=== PATIENT | female | born 1955 | race Hispanic/Latino ===

== ENCOUNTER 2024-01-05 19:15 | Inpatient (IN) | payer MEDICARE, OTHER ==
[~2024-01-05] VITALS: Ht 154.9 cm; Wt 69.0 kg
--- OUTSIDE RECORDS SUMMARY | 2024-01-05 19:20 | XMS ---
PreManage Notification: JOSE RAMON NORMAN Security Sow Manager Events No recent Security Events currently on file CRITERIA MET - [facility] - 2 Visits in 30 Days CARE PROVIDERS -[facility] Dentist: Concrete Bucket Hooker [facility] PHONE: [phone] -Anjelica- Dentist: Concrete Bucket Hooker [facility] PHONE: [phone] Sharita Otoole Nurse Practitioner: Family Current PHONE: Unknown Alok has no Care Guidelines for this patient. E.Vonnie VISIT COUNT (12 MO.) 4 [facility] 1 ALEJANDRO PowellChristina TOTAL 5 NOTE: Visits indicate total known visits. ED/UCC VISIT TRACKING (12 MO.) 01/05/2024 19:[address] [facility] [place] TYPE: Emergency COMPLAINT: - ANXIOUS/NERVOUS 01/04/2024 19:15 [facility] [place] TYPE: Emergency DIAGNOSES: - Anxiety disorder, unspecified - HEADACHE ANXIETY 01/04/2024 05:31 [employer] [place] TYPE: Emergency DIAGNOSES: - Panic disorder [episodic paroxysmal anxiety] - ANXIETY 12/30/2023 07:15 [employer] [place] [employer] [place] TYPE: Emergency DIAGNOSES: - Anxiety disorder, unspecified - Chest pain, unspecified - chest pain 12/24/2023 10:00 [employer] [facility] OR TYPE: Emergency DIAGNOSES: - Acute upper respiratory infection, unspecified - Chest pain, unspecified - chest pain, cough, congestion INPATIENT VISIT TRACKING (12 MO.) No inpatient visits to display in this time frame [email or web address]
[2024-01-05] MEDS ORDERED: LORazepam 2 MG/ML VIAL IV ONE (19:30)
[2024-01-05] MEDS ORDERED: ondansetron HCL 4 MG/2 ML VIAL IV ONE (19:30)
[2024-01-05 19:41] LABS: HEMATOCRIT 41.2 % (35.0-50.0); HEMOGLOBIN 14.2 g/dL (12.0-18.0); MCH 30.7 (27-36); MCHC 34.5 g/dl (30-36); MCV 89.1 fl (81-99); PLATELET COUNT 469 K/uL (140-440); RBC 4.63 M/ul (4.3-5.7); RDW 13.8 (10.5-15.0)
[2024-01-05 19:55] LABS: ALBUMIN/GLOBULIN RATIO 1.21 (1.1-2.4); ANION GAP 16.2 (7-21); BILIRUBIN, TOTAL 1.3 ng/dL (0.2-1.0); BUN/CREATININE RATIO 11.11 (6.0-28.6); CALCIUM 8.5 mg/dL (8.5-10.1); CREATININE, SERUM 0.45 mg/dL (0.55-1.02); POTASSIUM 4.2 mmol/L (3.5-5.1); PROTEIN, TOTAL 7.3 g/dL (6.4-8.2)
[2024-01-05 19:59] LABS: BILIRUBIN, URINE NEGATIVE (negative); BLOOD/HGB, URINE TRACE-L (Negative); KETONE, URINE SMALL (Negative); LEUK ESTERASE, URINE NEGATIVE (negative); NITRITE, URINE NEGATIVE (negative); PH, URINE 7.5 (5-7)
[2024-01-05 20:05] LABS: LYMPHOCYTES, MANUAL DIFF 14; MONOCYTES, MANUAL DIFF 12; NEUTROPHILS, MANUAL DIFF 74
[2024-01-05 20:10] LABS: CRYSTALS, URINE AMORPHOUS PHOSPH 1+ (0-1+); EPITHELIAL CELLS, URINE SQUAMOUS 1+ /lpf (0-1+)
[2024-01-05 20:11] LABS: BACTERIA, URINE 1+ /hpf (negative); CASTS, URINE NONE SEEN \\lpf; COLLECTION TYPE, URINE CLEAN CATCH; REFLEX CULTURE, URINE No (No)
[2024-01-05] MEDS ORDERED: Sodium Chloride 3% 500 ML IV ONE ×2 (20:15→22:00)
[2024-01-05 20:17] LABS: INFLUENZA B NAA NEGATIVE (NEGATIVE); RESPIRATORY SYNCYTIAL VIR NAA NEGATIVE (NEGATIVE)
[2024-01-05 20:36] LABS: TSH, 3RD GENERATION 1.603 uIU/mL (0.358-3.740)
[2024-01-05] MEDS ORDERED: ondansetron HCL 4 MG/2 ML VIAL IV PRN (23:00)
[2024-01-05] MEDS ORDERED: ACETAMINOPHEN 325 MG TAB PO PRN (23:00)
--- NOTE | 2024-01-05 23:21 | NUR ---
SBAR REPORT RECEIVED FROM SHE WEI. PATIENT WAS TRANSFERRED VIA STRETCHER WITH VSS AND WDL PER MONITOR. SHE IS NOTED TO BE TREMULOUS AND ENDORSED RESTROOM NEEDS AND CHILLS. 1P ASSIT TO BSC. URINE ADDED TO 24 CATCH COLLECTION. WARM BLANKETS PROVIDED. AFEBRILE. A&O X4, MOVES ALL EXTREMITIES, NO PAIN RA, CLEAR BREATHSOUNDS THROUGHOUT CARDIAC- NSR, NO EDEMA GI/- NORMOACTIVE BOWEL TONES, ENDORSES THIRST CRITICAL VALUE OF SODIUM 118 RESULTS TO BE RELAYED TO MD DUNCAN
[2024-01-06] VITALS (18 sets, daily range): BP systolic 89–135; BP diastolic 48–81
[2024-01-06 00:30] LABS: ANION GAP 12.8 (7-21); BUN/CREATININE RATIO 11.36 (6.0-28.6); CALCIUM 7.9 mg/dL (8.5-10.1); CREATININE, SERUM 0.44 mg/dL (0.55-1.02); POTASSIUM 3.8 mmol/L (3.5-5.1)
--- NOTE | 2024-01-06 00:35 | NUR ---
CRITICAL NA+ RESULT 118. RELAYED TO MD DUNCAN
--- NOTE | 2024-01-06 01:57 | NUR ---
ASSISTED PATIENT UP TO BSC. PATIENT TOLERATED WELL. PATIENT VOIDED SMALL CONCENTRATED AMOUNT. RETURNED TO BED. ONLY NEEDING CORD MANAGEMENT FOR ASSISTANCE. NO OTHER NEEDS AT THIS TIME. FAMILY IN ROOM. CALL LIGHT IN REACH.
--- NOTE | 2024-01-06 01:59 | NUR ---
PATIENT JOSE RAMON ENDORSES COMFORT OTHER THAN THIRST. SHE WAS OFFERED A MOUTH SWAB AND EXPLAINED THAT SHE IS NPO AT CURRENT MOMENT. SHE STATES UNDERSTANDING.
[2024-01-06 02:09] LABS: ANION GAP 12.9 (7-21); BUN/CREATININE RATIO 11.11 (6.0-28.6); CALCIUM 8.1 mg/dL (8.5-10.1); CREATININE, SERUM 0.45 mg/dL (0.55-1.02); POTASSIUM 3.9 mmol/L (3.5-5.1)
[2024-01-06 04:13] LABS: ANION GAP 11.9 (7-21); BUN/CREATININE RATIO 12.76 (6.0-28.6); CALCIUM 8.1 mg/dL (8.5-10.1); CREATININE, SERUM 0.47 mg/dL (0.55-1.02); POTASSIUM 3.9 mmol/L (3.5-5.1)
[2024-01-06 06:14] LABS: BASOPHILS 0.6 % (0-2); EOSINOPHILS 0.9 % (0-6); HEMATOCRIT 40.9 % (35.0-50.0); HEMOGLOBIN 13.9 g/dL (12.0-18.0); LYMPHOCYTES 27.1 % (24-44); MCH 30.6 (27-36); MONOCYTES 11.7 % (0-12); NEUTROPHILS 59.7 % (39-80); PLATELET COUNT 412 K/uL (140-440); RBC 4.54 M/ul (4.3-5.7); RDW 13.6 (10.5-15.0)
--- NOTE | 2024-01-06 06:23 | NUR ---
NO SIGNIFICANT EVENTS OVERNIGHT. Q2 NA+. CURRENT SERUM NA+ 119 NEURO- ORIENTED X4, MOVES ALL EXTREMITIES, DENIES PAIN, TREMULOUS, PERRL CARDIAC- SR, AFEBRILE RESP- RA GI/- NPO, ENDORSES THIRST, ACTIVE BOWEL TONES, PASSING FLATUS, VOIDS TO COMMODE
[2024-01-06 06:30] LABS: BUN/CREATININE RATIO 13.04 (6.0-28.6); CALCIUM 8.3 mg/dL (8.5-10.1); CREATININE, SERUM 0.46 mg/dL (0.55-1.02)
[2024-01-06 06:34] LABS: MAGNESIUM 2.1 mg/dL (1.8-2.4); PHOSPHORUS, INORGANIC 3.9 mg/dL (2.5-4.9)
--- NOTE | 2024-01-06 07:00 | NUR ---
ROUNDING ON PATIENT AFTER REPORT, SHE IS RESTING QUIELTY IN BED EYES CLOSED, ON MONITOR V/S STABLE, RR 15/MIN
--- NOTE | 2024-01-06 08:07 | NUR ---
PATIENT BACK TO BED AFTER UP TO BATHROOM WITH STANDBY ASSIST WITH LINES, SHE TOLERATED AACTIVITY WELL, SHE REPORTS MILD DIZZINESS WITH AMBULATION. PATIENT HAD VOID OF URINE AND MEDIUM LIQUID STOOL. PATIENT BACK TO BED, SHE REPORTS NO COMPLAINTS, WARM BLANKETS PROVIDED. V/S STABLE ASSESSMENT DONE. NO NEW SYMPTOMS.
--- NOTE | 2024-01-06 08:28 | NUR ---
AT BEDSIDE, WITH CONDENSER CLEANER ODESSA [id number] VIA VIDEO CONDENSER CLEANER. THEY ARE DISCUSSING PLAN OF CARE, AND SYMPTOMS, AND CARE PLAN TO GO FURTHER, DISCUSSED LABS AND SODIUM LEVELS AND INTERVENTIONS
[2024-01-06 08:37] LABS: ANION GAP 13.9 (7-21); BUN/CREATININE RATIO 12.5 (6.0-28.6); CALCIUM 7.8 mg/dL (8.5-10.1); CREATININE, SERUM 0.48 mg/dL (0.55-1.02); POTASSIUM 3.9 mmol/L (3.5-5.1)
[2024-01-06] MEDS ORDERED: hydrOXYzine pamoate 25 MG CAP PO PRN ×2 (09:00→10:30)
[2024-01-06] MEDS ORDERED: ENOXAPARIN SODIUM 40 MG/0.4 ML SYR SUB-Q SCH (09:00)
[2024-01-06] MEDS ORDERED: MELATONIN 3 MG TAB PO PRN (09:00)
[2024-01-06] MEDS ORDERED: PANTOPRAZOLE SODIUM 40 MG/10 ML VIAL IV SCH (09:00)
[2024-01-06 10:16] LABS: BUN/CREATININE RATIO 14.58 (6.0-28.6); CALCIUM 7.9 mg/dL (8.5-10.1); CREATININE, SERUM 0.48 mg/dL (0.55-1.02)
--- NOTE | 2024-01-06 10:18 | NUR ---
CALLED IN REGARDS TO SODIUM LAB 118. SAID HE WILL PUT IN NEW ORDERS TO ALLOW PATIENT SOME DIET AND DRINK.
--- NOTE | 2024-01-06 10:33 | NUR ---
PATIENT FAMILY IN ROOM AT BEDSIDE NOW
--- NOTE | 2024-01-06 11:17 | NUR ---
PATIENT UP TO BATHROOM, VOIDED 125ML AND HAD MEDIUM LOOSE BM, FLATUS POSITIVE. PATIENT NOTED TO CONTINUE TO HAVE MILD TREMORS AT HER HANDS, NO REPORTS OF DIZZINESS.
[2024-01-06] MEDS ORDERED: PHARMACY RENAL DOSE ADJUSTMENT 1 DOSE MISC PO SCH (12:00)
--- NOTE | 2024-01-06 12:07 | NUR ---
PATIENT SET UP WITH LUNCH TRAY, SHE IS ALERT AND ORIENTED, FAMILY IN ROOM, HAND TOWEL PROVIDED. SHE ASKED FOR APPLE JUICE FOR HER FLUIDS WITH LUNCH, MILK REMOVED AND APPLE JUICE PROVIDED.
[2024-01-06 12:29] LABS: BUN/CREATININE RATIO 11.32 (6.0-28.6); CALCIUM 8.1 mg/dL (8.5-10.1); CREATININE, SERUM 0.53 mg/dL (0.55-1.02)
--- NOTE | 2024-01-06 12:40 | NUR ---
CALLED TO REPORT SODIUM LAB AT 120.
[2024-01-06] MEDS ORDERED: DEXTROSE 5% 1,000 ML IV SCH (12:45)
[2024-01-06] MEDS ORDERED: PROCHLORPERAZINE EDISYLATE 10 MG/2 ML VIAL IV PRN (13:00)
--- NOTE | 2024-01-06 14:35 | NUR ---
PATIENT UP TO RECLINER AT THIS TIME, SHE REPORTS SHE CAN NOT GET COMFORTABLE IN THE BED. NO OTHER REQUESTS OR CONCERNS, WARM BLANKET PROVIDED
--- NOTE | 2024-01-06 15:52 | NUR ---
PATIENT UP TO BATHROOM VOIDED 100ML, NO REPORTS OR NAUSEA OR PAIN. HER SON IS AT BEDSIDE.
[2024-01-06 16:21] LABS: ANION GAP 13.8 (7-21); BUN/CREATININE RATIO 12.9 (6.0-28.6); CALCIUM 8.3 mg/dL (8.5-10.1); CREATININE, SERUM 0.62 mg/dL (0.55-1.02); POTASSIUM 3.8 mmol/L (3.5-5.1)
[2024-01-06] MEDS ORDERED: SODIUM CHLORIDE 0.9% 1,000 ML IV SCH (16:45)
[2024-01-06] MEDS ORDERED: LORazepam 2 MG/ML VIAL IV ONE (16:45)
--- NOTE | 2024-01-06 20:00 | NUR ---
SBAR REPORT RECEIVED FROM SHE MIGUEL. PATIENT JOSE RAMON IS NOTED TO BE RESTING WITH EYES CLOSED. TACHYCARDIA 112 NOTED WITH OCCASIONAL PVC'S. PATIENT DENIES ANY DISCOMFORT OR NEEDS AT THIS TIME. SAFETY CHECK ROOM PERFORMED. BED IN LOWEST POSITION AND REMOTED/CALL LIGHT WITH PATIENT ON THE BED.
--- NOTE | 2024-01-06 21:16 | NUR ---
PATIENT JOSE RAMON CALLED AND REPORTED THAT SHE IS FEELING ANXIOUS AGAIN AND SHE IS READY FOR HER "SLEEP MEDICINE". SHE ALSO ENDORSES SOME ABDOMINAL PAIN. PRN TYLENOL, VISTERIL, AND MELATONIN WILL BE GIVEN FOR THESE SYMPTOMS.
[2024-01-06 22:10] LABS: ANION GAP 11.6 (7-21); BUN/CREATININE RATIO 13.11 (6.0-28.6); CALCIUM 7.6 mg/dL (8.5-10.1); CREATININE, SERUM 0.61 mg/dL (0.55-1.02); POTASSIUM 3.6 mmol/L (3.5-5.1)
--- NOTE | 2024-01-06 23:19 | NUR ---
PATIENT JOSE RAMON IS NOTED TO BE RESTING COMFORTABLY WITH EYES CLOSED. FAMILY REMAINS AT BEDSIDE. SHE STATES THAT HER ANXIETY, PAIN, AND REST SYMPTOMS HAVE SUBSIDED WITH PRN VISTERIL, ACETAMINOPHEN, MELATONIN.
[2024-01-07] VITALS (14 sets, daily range): BP systolic 90–144; BP diastolic 47–105
--- NOTE | 2024-01-07 00:09 | NUR ---
STAND BY ASSIST TO THE BATHROOM. 350CC YELLOW URINE VOIDED. PATIENT IS BACK IN BED WITHOUT INCIDENT. BED IN LOWEST POSITION AND CALL LIGHT WITHIN REACH. PATIENT DENIES ANY OTHER NEEDS AT THIS TIME. VSS AND WDL PER MONITOR
[2024-01-07 05:32] LABS: URINE OSMOLALITY 435 mOsm/kg (50-800)
[2024-01-07 05:42] LABS: OSMOLALITY 224 mOsm/kg (280-303)
--- NOTE | 2024-01-07 07:01 | NUR ---
ALERT AND ORIENTED X 4, DENIES PAIN RA SR BOWEL TONES, PASSING FLATUS, VOIDS IN BATHROOM
--- NOTE | 2024-01-07 07:28 | NUR ---
AMBULATED TO RESTROOM. 700CC VOIDED IN BATHROOM
--- NOTE | 2024-01-07 08:12 | NUR ---
ROUNDING ON PATIENT UTILIZED VIDEO ICEBOX MAN QuisicNIE [id number], DISCUSSED CARE PLAN WITH PATIENT, ASSESSED PATIENT FOR ALL SYMPTOMS AND CONCERNS. PATIENT VERBLIZED THROUGH DONOR SERVICES MANAGER THAT SHE HAS NO PAIN, NAUSEA, OR OTHER CONCERNS OTHER THAN ANXIETY.
[2024-01-07 08:29] LABS: ANION GAP 13.7 (7-21); BUN/CREATININE RATIO 12.76 (6.0-28.6); CALCIUM 7.9 mg/dL (8.5-10.1); CREATININE, SERUM 0.47 mg/dL (0.55-1.02); POTASSIUM 3.7 mmol/L (3.5-5.1)
[2024-01-07] MEDS ORDERED: PANTOPRAZOLE SODIUM 40 MG TABEC PO SCH (09:00)
--- NOTE | 2024-01-07 09:40 | NUR ---
NEW IV SITE ESTABLISHED IN LEFT FOREARM FOR NS INFUSION PATIENT HAS A DIFFICULTY TIME KEEPING RIGHT ARM STRAIGHT WITH RIGHT AC IV SITE. PATIENT TOLERATED WELL. PATIENT PREFERENCE IS TO HAVE SON TRANSLATE WHILE HE IS IN THE ROOM. NO REQUESTS, OR CONCERNS AT THIS TIME.
--- NOTE | 2024-01-07 09:46 | NUR ---
GAVE PROCESS EQUIPMENT OPERATOR MARIA ORDERS TO PLACE BMP ORDER FOR 1400 AND INCREASE NS INFUSION TO 125/HR. THIS IS DONE
--- NOTE | 2024-01-07 10:06 | NUR ---
PATIENT RESTING IN BED, EYES CLOSED. V/S STABLE ON MONTOR. RR 16/MIN. NO DISTRESS NOTED AT THIS TIME
--- NOTE | 2024-01-07 11:00 | NUR ---
PATIENT CALLED TO ASK FOR ASSISTANCE TO THE BATHROOM, PATIENT AMBULATES WITH STEADY GAIT, LINE MANAGEMENT BY RN. PATIENT VOIDED 200 URINE AND HAD MEDIUM BM WITH FLATUS NOTED.
--- NOTE | 2024-01-07 11:41 | NUR ---
PATIENT RESTING ACROSS BED, NO COMPLAINTS, FAMILY AT BEDSIDE.
--- NOTE | 2024-01-07 13:20 | NUR ---
PATIENT RESTING IN BED, ALERT AND ORIENTED, SHE ONLY ATE ABOUT 50% OF LUNCH, SHE SAID SHE DID NOT FEEL VERY HUNGRY, PATIENT SAID NO NAUSEA AT THIS TIME. SHE HAS NO REQUESTS AT THIS TIME.
[2024-01-07 13:32] LABS: CORTISOL,SERUM 15.9 ug/dL (())
--- NOTE | 2024-01-07 13:49 | NUR ---
patient takes no medications
--- NOTE | 2024-01-07 14:07 | NUR ---
LAB IN TO DRAW BLOOD, VISITORS IN ROOM WELL.
[2024-01-07 14:23] LABS: ANION GAP 12.8 (7-21); BUN/CREATININE RATIO 12.72 (6.0-28.6); CALCIUM 7.7 mg/dL (8.5-10.1); CREATININE, SERUM 0.55 mg/dL (0.55-1.02); POTASSIUM 3.8 mmol/L (3.5-5.1)
--- NOTE | 2024-01-07 14:39 | NUR ---
CALLED TO REPORT SODIUM LEVEL 123, HE WOULD LIKE PATIENT TO STAY CCU AT THIS TIME
--- NOTE | 2024-01-07 15:23 | NUR ---
CALLED TO REPORT THAT IV SITE INFILTRATED AT LEFT FA WITH NS, NOTICED EARLY, LEFT HAND SOFT AND PUFFY, IV FLUID STOPPED, NEW IV SITE STARTED ON RIGHT ARM, LEFT HAND ELEVATED ON PILLOWS X2 WITH WARM BLANKET.
--- NOTE | 2024-01-07 16:05 | NUR ---
SWELLING HAS RESOLVED ON LEFT HAND FROM INFILTRATION OF IV SITE WITH NS. PATIENT IS ALERT AND ORIENTED. FAMILY AT BEDSIDE.
--- NOTE | 2024-01-07 17:42 | NUR ---
PATIENT UP TO BATHROOM SUPERVISED ASSIST IN ROOM, NO HAS TREMORS TO BUE, STEADY GAIT, GOOD BALANCE. CONSUMED 90% OF DINNER. NO REPORT OF NAUSEA OR PAIN.
--- NOTE | 2024-01-07 20:06 | NUR ---
SBAR REPORT RECEIVED FROM SHE MIGUEL. ALL EVENTS OF THE SHIFT WERE DISCUSSED AND ALL QUESTIONS ANSWERED/CLARIFIED. PATIENT JOSE RAMON REPORTED RESTROOM NEEDS. SHE AMBULATED WELL AND INDEPENDENTLY TO THE RESTROOM. 200 CC OF CLEAR YELLOW URINE VOIDED IN BATHROOM. SHE IS BACK IN BED WITHOUT INCIDENT. VSS AND WDL PER MONITOR. SAFETY CHECK OF ROOM PERFORMED. NS AT 125CC PER HOUR. IV SITES ARE PATENT AND INTACT. BRUISING NOTED ON LEFT HAND FROM INFILTRATION OF PREVIOUS IV. PATIENT STATES THAT IT IS NOT PAINFUL.
[2024-01-07 20:09] LABS: ANION GAP 14.9 (7-21); BUN/CREATININE RATIO 9.43 (6.0-28.6); CALCIUM 7.9 mg/dL (8.5-10.1); CREATININE, SERUM 0.53 mg/dL (0.55-1.02); POTASSIUM 3.9 mmol/L (3.5-5.1)
[2024-01-07] MEDS ORDERED: MIRTAZAPINE 15 MG TAB PO SCH (21:00)
--- NOTE | 2024-01-07 21:39 | NUR ---
PATIENT JOSE RAMON REQUESTED MELATONIN ALONG WITH PM MEDS. SHE ASKED IF THE MEDS WERE "ADDICTING". MEDICATION EDUCATION GIVEN AND RECEIVED WELL.
--- NOTE | 2024-01-07 22:17 | NUR ---
PT UP TO BR AND BACK TO BED. CLEAN GOWN PROVIDED. PT TOLERATED WELL. PT STATES NO OTHER NEEDS AT THIS TIME. CALL LIGHT IN REACH.
--- NOTE | 2024-01-07 23:27 | NUR ---
PATIENT CALLED AND REPORTED RESTROOM NEEDS. 300CC YELLOW URINE VOIDED IN BATHROOM. BACK TO BED WITHOUT INCIDENT
[2024-01-08 00:10] VITALS: BP 118/61
[2024-01-08 02:13] LABS: ANION GAP 13.6 (7-21); BUN/CREATININE RATIO 8.88 (6.0-28.6); CALCIUM 8.7 mg/dL (8.5-10.1); CREATININE, SERUM 0.45 mg/dL (0.55-1.02); POTASSIUM 3.6 mmol/L (3.5-5.1)
--- NOTE | 2024-01-08 02:41 | NUR ---
MD MOSER NOTIFIED OF CORRECTED NA+ OF 134. VERBAL ORDERS TO DC NS FLUIDS. WILL RECHECK BMP IN THE AM
[2024-01-08 02:42] VITALS: BP 118/43
--- NOTE | 2024-01-08 05:06 | NUR ---
PATIENT JOSE RAMON CALLED AND REPORTED RESTROOM NEEDS. SHE AMBULATED WELL TO THE BATHROOM. RETURNED TO BED WITHOUT INCIDENT. DENIES ANY OTHER NEEDS OR DISCOMFORT. SPOUSE AND SON REMAIN AT BEDSIDE. VSS WDL PER MONITOR. SAFETY CHECK OF ROOM PERFORMED
[2024-01-08 05:12] VITALS: BP 138/75
[2024-01-08 06:34] VITALS: BP 90/49
--- NOTE | 2024-01-08 06:47 | NUR ---
PATIENT JOSE RAMON APPEARED TO REST WELL WITH EYES CLOSED MOST OF THE SHIFT. SHE HAD MINIMAL REQUESTS OTHER THAN RESTROOM NEEDS. SHE STATES THAT SHE FEELS "GOOD" THIS MORNING. NEURO- ALERT AND ORIENTED X 4, INDEPENDENT MOBILITY TO BATHROOM AND AROUND ROOM, DENIES ANY PAIN, ENDORSES "HEAVINESS" IN RIGHT HAND IN INFILTRATED IV SITE, PERRL CARDIAC- SR- ST, NORMOTENSIVE RESP- RA, CLEAR GI/- 1600CC FLUID RESTRICTION, 2G NA DIET, PASSING FLATUS, NORMOACTIVE BOWEL TONES INT- SEE ASSESSMENT 134 NA+ BMP TODAY
--- NOTE | 2024-01-08 07:25 | NUR ---
report from catrachito noriega, pt resting in room with call light in reach and family at side, hr 81.
[2024-01-08 08:00] VITALS: BP 142/80
[2024-01-08 08:25] LABS: ANION GAP 13.6 (7-21); BUN/CREATININE RATIO 6.38 (6.0-28.6); CALCIUM 8.1 mg/dL (8.5-10.1); CREATININE, SERUM 0.47 mg/dL (0.55-1.02); POTASSIUM 3.6 mmol/L (3.5-5.1)
--- NOTE | 2024-01-08 08:30 | NUR ---
pt reports her pcp is mario alberto sharma at [facility] in [place] with dr. barnes - called pbx to add info to pt chart. pt denies pain and reports anxiety this am - prn med given with meal. son and in room - pt reports anxiety is greater in last few weeks due to stress, family and change of medications from [facility] to her pcp. pt shows this rn a bottle of hydralazine from [place] and box of alprazolam from [employer]. pt seems very nervous and is eating with assistance from family although she is very capable of self care. family is attempting to schedule counseling with [facility] and has the info at bedside. lab was in for blood draw and pt denies other needs.
--- NOTE | 2024-01-08 08:55 | NUR ---
dr malin and dc inventory planner here using video driver's education instructor - no new prescriptions, eat a regular diet and follow up with your pcp in 5-7 days. encouraged well balanced meals and well balanced fluids, follow with [facility] for therapy and counsleling. both appointments made by son with [facility] and pcp.
[2024-01-08 10:09] VITALS: BP 110/69
== END 2024-01-08 10:10 | disposition home or self-care (01) | DRG 641 ==
LOC: ED 19:15 → CCU 22:58
PROVIDERS: Family Medicine; Internal Medicine; ADMIT Family Medicine; ATTEND Family Medicine
DX: E87.1 Hypo-osmolality and hyponatremia (principal); T43.225A Adverse effect of selective serotonin reuptake inhibitors, initial encounter; I10 Essential (primary) hypertension; D72.829 Elevated white blood cell count, unspecified; K21.9 Gastro-esophageal reflux disease without esophagitis; F41.1 Generalized anxiety disorder; Z88.2 Allergy status to sulfonamides; Z88.1 Allergy status to other antibiotic agents
CPT/HCPCS: 36415; 80048; 80053; 81001; 82533; 83735; 83930; 83935; 84100; 84295; 84302; 84443; 85025; 87502; 96374; 96375; 99284-25; A9270; C9113; J0780; J1650; J2060; J2405; J7030; J7070; J7131; Q0177; U0002

== ENCOUNTER 2024-01-12 18:24 | Emergency (ER) | payer MEDICARE, OTHER ==
[~2024-01-12] VITALS: Ht 154.9 cm; Wt 68.1 kg
--- OUTSIDE RECORDS SUMMARY | 2024-01-12 18:26 | XMS ---
PreManage Notification: JOSE RAMON NORMAN Security Surgical Brace Maker Events No recent Security Events currently on file CRITERIA MET - 6 ED Visits in 6 Months - [facility] - 2 Visits in 30 Days CARE PROVIDERS -[facility] Dentist: Instructor Traffic Safety [facility] PHONE: [phone] -Anjelica- Dentist: Instructor Traffic Safety [facility] PHONE: [phone] Sharita Otoole Nurse Practitioner: Family Current PHONE: Unknown Alok has no Care Guidelines for this patient. E.D. VISIT COUNT (12 MO.) [address] [place] [address] [address] [facility] TOTAL 6 NOTE: Visits indicate total known visits. ED/UCC VISIT TRACKING (12 MO.) 01/12/2024 18:24 [facility] [place] TYPE: Emergency COMPLAINT: - WEAKNESS/HIGH HEART RATE 01/05/2024 19:18 [facility] [place] TYPE: Emergency COMPLAINT: - ANXIOUS/NERVOUS 01/04/2024 19:15 [place] TYPE: Emergency DIAGNOSES: - Anxiety disorder, unspecified - HEADACHE ANXIETY 01/04/2024 05:31 [place] TYPE: Emergency DIAGNOSES: - Panic disorder [episodic paroxysmal anxiety] - ANXIETY 12/30/2023 07:15 [employer] [facility] [place] TYPE: Emergency DIAGNOSES: - Anxiety disorder, unspecified - Chest pain, unspecified - chest pain 12/24/2023 10:00 [facility] DIAGNOSES: - Acute upper respiratory infection, unspecified - Chest pain, unspecified - chest pain, cough, congestion INPATIENT VISIT TRACKING (12 MO.) 01/05/2024 22:[address] [place] TYPE: Critical Care COMPLAINT: - HYPONATREMIA DIAGNOSES: - Adverse effect of selective serotonin reuptake inhibitors, initial encounter - Adverse effect of selective serotonin reuptake inhibitors, initial encounter - Adverse effect of selective serotonin reuptake inhibitors, subsequent encounter - Allergy status to other antibiotic agents - Allergy status to other antibiotic agents - Allergy status to sulfonamides - Allergy status to sulfonamides - Elevated white blood cell count, unspecified - Elevated white blood cell count, unspecified - Essential (primary) hypertension - Essential (primary) hypertension - Gastro-esophageal reflux disease without esophagitis - Gastro-esophageal reflux disease without esophagitis - Generalized anxiety disorder - Generalized anxiety disorder - Hypo-osmolality and hyponatremia [email or web address]
[2024-01-12 19:00] LABS: BASOPHILS 0.6 % (0-2); EOSINOPHILS 1.5 % (0-6); HEMATOCRIT 38.1 % (35.0-50.0); HEMOGLOBIN 12.8 g/dL (12.0-18.0); LYMPHOCYTES 22.9 % (24-44); MCH 31.3 (27-36); MCHC 33.6 g/dl (30-36); MCV 93.2 fl (81-99); MONOCYTES 7.6 % (0-12); NEUTROPHILS 67.4 % (39-80); PLATELET COUNT 330 K/uL (140-440); RBC 4.09 M/ul (4.3-5.7); RDW 13.8 (10.5-15.0)
[2024-01-12 19:17] LABS: ALBUMIN 3.5 g/dL (3.4-5.0); ALBUMIN/GLOBULIN RATIO 1.09 (1.1-2.4); ANION GAP 14.9 (7-21); BILIRUBIN, TOTAL 0.3 ng/dL (0.2-1.0); BUN/CREATININE RATIO 8.77 (6.0-28.6); CALCIUM 8.4 mg/dL (8.5-10.1); CREATININE, SERUM 0.57 mg/dL (0.55-1.02); POTASSIUM 3.9 mmol/L (3.5-5.1); PROTEIN, TOTAL 6.7 g/dL (6.4-8.2)
[2024-01-12 20:04] VITALS: BP 123/65
--- NOTE | 2024-01-13 22:14 | EKG ---
[facility] [address] [facility] [place], [place] [address] Signed Normal sinus rhythm Minimal voltage criteria for LVH, may be normal variant ( R in aVL ) Borderline ECG No previous ECGs available Confirmed by TYE DORMAN MD ([id number]) on 01/13/2024 10:13:51 PM Electronically Signed By: TYE DORMAN 01/13/24 2214 PATIENT NAME: JOSE RAMON NORMAN Electrocardiogram DATE OF : 57 PHYSICIAN: TYE DORMAN REPORT #: [id number] REPORT IS CONFIDENTIAL AND NOT TO BE RELEASED WITHOUT AUTHORIZATION
== END 2024-01-12 20:04 | disposition home or self-care (01) ==
LOC: ED 18:24
PROVIDERS: Emergency Medicine
DX: F41.9 Anxiety disorder, unspecified (principal); I10 Essential (primary) hypertension; Z88.2 Allergy status to sulfonamides; Z88.1 Allergy status to other antibiotic agents; Z79.899 Other long term (current) drug therapy
CPT/HCPCS: 36415; 71045; 80053; 83735; 84484; 85025; 93005; 93010; 99285-25

== ENCOUNTER 2024-01-20 17:43 | Emergency (ER) | payer MEDICARE, OTHER ==
[~2024-01-20] VITALS: Ht 154.9 cm; Wt 68.1 kg
[~2024-01-20 17:43] MED LIST: CYMBALTA20 MG PO; HYDROXYZINE HCL25 MG PO; NEXIUM20 MG PO; ONDANSETRON ODT4 MG PO
--- OUTSIDE RECORDS SUMMARY | 2024-01-20 17:45 | XMS ---
PreManage Notification: JOSE RAMON NORMAN Security Creche Attendant Events No recent Security Events currently on file CRITERIA MET - 6 ED Visits in 6 Months - [facility] - 2 Visits in 30 Days CARE PROVIDERS -[facility] Dentist: Tile Sprayer [facility] PHONE: [phone] -Anjelica- Dentist: Tile Sprayer [facility] PHONE: [phone] Sharita Otoole Nurse Practitioner: Family Current PHONE: Unknown Alok has no Care Guidelines for this patient. E.D. VISIT COUNT (12 MO.) [address] [facility] [address] [facility] TOTAL 8 NOTE: Visits indicate total known visits. ED/UCC VISIT TRACKING (12 MO.) 01/20/2024 17:44 [facility] [place] TYPE: Emergency COMPLAINT: - ABDOMINAL PAIN 01/16/2024 17:26 [facility] [place] TYPE: Emergency COMPLAINT: - HEAD PAIN, NAUSEA, DIZZINESS DIAGNOSES: - Adverse effect of selective serotonin and norepinephrine reuptake inhibitors, initial encounter - Allergy status to other antibiotic agents - Allergy status to sulfonamides - Anxiety disorder, unspecified - Drug-induced headache, not elsewhere classified, not intractable - Headache, unspecified - Other nursing home (current) drug therapy 01/12/2024 18:24 [facility] [place] TYPE: Emergency COMPLAINT: - WEAKNESS/HIGH HEART RATE DIAGNOSES: - Allergy status to other antibiotic agents - Allergy status to sulfonamides - Anxiety disorder, unspecified - Essential (primary) hypertension - Other nursing home (current) drug therapy - Palpitations 01/05/2024 19:18 [facility] [place] TYPE: Emergency COMPLAINT: - ANXIOUS/NERVOUS 01/04/2024 19:15 [facility] [place] TYPE: Emergency DIAGNOSES: - Anxiety disorder, unspecified - HEADACHE ANXIETY 01/04/2024 05:31 [employer] [place] TYPE: Emergency DIAGNOSES: - Panic disorder [episodic paroxysmal anxiety] - ANXIETY 12/30/2023 07:15 [facility] [place] TYPE: Emergency DIAGNOSES: - Anxiety disorder, unspecified - Chest pain, unspecified - chest pain 12/24/2023 10:00 [employer] [place] TYPE: Emergency DIAGNOSES: - Acute upper [...] Generalized anxiety disorder - Hypo-osmolality and hyponatremia [email or web address]
[2024-01-20] MEDS ORDERED: LISINOPRIL10 MG PO (18:11)
[2024-01-20 18:23] LABS: BILIRUBIN, URINE NEGATIVE (negative); BLOOD/HGB, URINE NEGATIVE (Negative); KETONE, URINE NEGATIVE (Negative); LEUK ESTERASE, URINE NEGATIVE (negative); NITRITE, URINE NEGATIVE (negative)
[2024-01-20] MEDS ORDERED: ondansetron HCL 4 MG/2 ML VIAL IV ONE (18:30)
[2024-01-20 18:37] LABS: BASOPHILS 0.6 % (0-2); EOSINOPHILS 0.5 % (0-6); HEMATOCRIT 37.9 % (35.0-50.0); HEMOGLOBIN 12.9 g/dL (12.0-18.0); LYMPHOCYTES 15.8 % (24-44); MCH 31.1 (27-36); MCHC 34.1 g/dl (30-36); MONOCYTES 5.8 % (0-12); NEUTROPHILS 77.3 % (39-80); PLATELET COUNT 343 K/uL (140-440); RBC 4.16 M/ul (4.3-5.7); RDW 13.6 (10.5-15.0)
[2024-01-20 18:49] LABS: ALBUMIN 3.4 g/dL (3.4-5.0); ALBUMIN/GLOBULIN RATIO 1.03 (1.1-2.4); ANION GAP 12.8 (7-21); BILIRUBIN, TOTAL 0.3 ng/dL (0.2-1.0); BUN/CREATININE RATIO 6.34 (6.0-28.6); CALCIUM 8.4 mg/dL (8.5-10.1); CREATININE, SERUM 0.63 mg/dL (0.55-1.02); POTASSIUM 3.8 mmol/L (3.5-5.1); PROTEIN, TOTAL 6.7 g/dL (6.4-8.2)
[2024-01-20] MEDS ORDERED: DICYCLOMINE HCL10 MG PO (20:37)
[2024-01-20] MEDS ORDERED: PROMETHAZINE12.5 M1 PO (20:40)
[2024-01-20] MEDS ORDERED: PROMETHAZINE HCL 25 MG HOME.PACK PO ONE (20:45)
[2024-01-20] MEDS ORDERED: DICYCLOMINE HCL 10 MG HOME.PACK PO ONE (20:45)
[2024-01-20 21:05] VITALS: BP 132/82
== END 2024-01-20 21:05 | disposition home or self-care (01) ==
LOC: ED 17:43
PROVIDERS: Emergency Medicine
DX: R14.0 Abdominal distension (gaseous) (principal); I10 Essential (primary) hypertension; Z88.2 Allergy status to sulfonamides; Z88.1 Allergy status to other antibiotic agents; Z88.8 Allergy status to other drugs, medicaments and biological substances; Z79.899 Other long term (current) drug therapy
CPT/HCPCS: 36415; 74018; 80053; 81003; 83690; 85025; 96374; 99284-25; J2405

== ENCOUNTER 2024-01-26 14:17 | Emergency (ER) | payer MEDICARE, OTHER ==
[~2024-01-26] VITALS: Ht 154.9 cm; Wt 67.4 kg
[~2024-01-26 14:17] MED LIST changes: +DICYCLOMINE HCL10 MG PO; +LISINOPRIL10 MG PO; +PROMETHAZINE12.5 M1 PO
--- OUTSIDE RECORDS SUMMARY | 2024-01-26 14:18 | XMS ---
PreManage Notification: JOSE RAMON NORMAN Security Specification Manager Events No recent Security Events currently on file CRITERIA MET - 6 ED Visits in [address] Mon[address] - [facility] - 2 Visits in 30 Days CARE PROVIDERS -[facility] Dentist: Assistant Basketball Coach [facility] PHONE: [phone] -Anjelica- Dentist: Assistant Basketball Coach [facility] PHONE: [phone] Sharita Otoole Nurse Practitioner: Family Current PHONE: Unknown Alok has no Care Guidelines for this patient. E.D. VISIT COUNT (12 MO.) [address] [facility] 4 [facility] TOTAL 9 NOTE: Visits indicate total known visits. ED/UCC VISIT TRACKING (12 MO.) 01/26/2024 14:18 [facility] [place] TYPE: Emergency COMPLAINT: - DIZZINESS 01/20/2024 17:44 [facility] [place] TYPE: Emergency COMPLAINT: - ABDOMINAL PAIN DIAGNOSES: - Abdominal distension (gaseous) - Allergy status to other antibiotic agents - Allergy status to other drugs, medicaments and biological substances - Allergy status to sulfonamides - Essential (primary) hypertension - Other [facility] (current) drug therapy - Unspecified abdominal pain 01/16/2024 17:26 [facility] [place] TYPE: Emergency COMPLAINT: - HEAD PAIN, NAUSEA, DIZZINESS DIAGNOSES: - Adverse effect of selective serotonin and norepinephrine reuptake inhibitors, initial encounter - Allergy status to other antibiotic agents - Allergy status to sulfonamides - Anxiety disorder, unspecified - Drug-induced headache, not elsewhere classified, not intractable - Headache, unspecified - Other [facility] (current) drug therapy 01/12/2024 18:24 [facility] [place] TYPE: Emergency COMPLAINT: - WEAKNESS/HIGH HEART RATE DIAGNOSES: - Allergy status to other antibiotic agents - Allergy status to sulfonamides - Anxiety disorder, unspecified - Essential (primary) hypertension - Other ferry terminal supervisor (current) drug therapy - Palpitations 01/05/2024 19:18 [facility] [place] TYPE: Emergency COMPLAINT: - ANXIOUS/NERVOUS 01/04/2024 19:15 [employer] [facility] [place] TYPE: Emergency DIAGNOSES: - Anxiety disorder, unspecified - HEADACHE ANXIETY 01/04/2024 05:31 [employer] [place] TYPE: Emergency DIAGNOSES: - Panic disorder [episodic paroxysmal anxiety] - ANXIETY 12/30/2023 07:15 [facility] [place] TYPE: Emergency DIAGNOSES: - Anxiety disorder, unspecified - Chest pain, unspecified - chest pain 12/24/2023 10:00 [employer] [place] TYPE: Emergency DIAGNOSES: - Acute upper [...] Generalized anxiety disorder - Hypo-osmolality and hyponatremia [email or web address]
[2024-01-26 14:41] LABS: BILIRUBIN, URINE NEGATIVE (negative); BLOOD/HGB, URINE NEGATIVE (Negative); KETONE, URINE NEGATIVE (Negative); LEUK ESTERASE, URINE NEGATIVE (negative); NITRITE, URINE NEGATIVE (negative); PH, URINE 6.5 (5-7)
[2024-01-26 14:53] LABS: MONOCYTES 7.1 % (0-12)
[2024-01-26 14:55] LABS: BASOPHILS 0.5 % (0-2); EOSINOPHILS 0.6 % (0-6); HEMATOCRIT 40.7 % (35.0-50.0); HEMOGLOBIN 13.7 g/dL (12.0-18.0); LYMPHOCYTES 15.8 % (24-44); MCH 30.9 (27-36); MCHC 33.6 g/dl (30-36); MCV 91.8 fl (81-99); PLATELET COUNT 413 K/uL (140-440); RBC 4.43 M/ul (4.3-5.7); RDW 13.6 (10.5-15.0)
[2024-01-26 15:08] LABS: ALBUMIN 3.3 g/dL (3.4-5.0); ALBUMIN/GLOBULIN RATIO 0.94 (1.1-2.4); ANION GAP 16.1 (7-21); BILIRUBIN, TOTAL 0.3 ng/dL (0.2-1.0); CALCIUM 8.6 mg/dL (8.5-10.1); CREATININE, SERUM 0.5 mg/dL (0.55-1.02); MAGNESIUM 1.9 mg/dL (1.8-2.4); POTASSIUM 4.1 mmol/L (3.5-5.1); PROTEIN, TOTAL 6.8 g/dL (6.4-8.2)
[2024-01-26] MEDS ORDERED: ATIVAN0.5 MG PO (15:17)
[2024-01-26] MEDS ORDERED: LORazepam 0.5 MG TAB PO ONE (15:30)
[2024-01-26] MEDS ORDERED: ONDANSETRON ODT8 MG PO (16:33)
[2024-01-26 16:36] VITALS: BP 150/114
== END 2024-01-26 16:38 | disposition home or self-care (01) ==
LOC: ED 14:17
PROVIDERS: Family Medicine
DX: F41.9 Anxiety disorder, unspecified (principal); I10 Essential (primary) hypertension; Z88.2 Allergy status to sulfonamides; Z88.1 Allergy status to other antibiotic agents; Z88.8 Allergy status to other drugs, medicaments and biological substances
CPT/HCPCS: 36415; 80053; 81003; 83735; 85025; 99284